=== PATIENT | female | born 1975 | race Caucasian/White ===

== ENCOUNTER 2016-08-10 13:00 | Emergency (ER) | payer OTHER ==
[2016-08-10 13:22] VITALS: BP 108/66
--- NOTE | 2016-08-10 13:25 | PROVIDER DOCUMENTATION ---
HPI-EENT General - General Chief Complaint: Toothache Stated Complaint: TOOTHACHE Time Seen by Provider: 08/10/16 13:03 Source: patient Allergies/Adverse Reactions: Patient Allergies Allergy/AdvReac Type Severity Reaction Status Date / Time adhesive tape Allergy Unknown Verified 08/10/16 13:22 Sulfa (Sulfonamide AdvReac Intermediate VOMITING Verified 08/10/16 13:22 Antibiotics) sumatriptan [From Imitrex] AdvReac Intermediate VOMITING Verified 08/10/16 13:22 sumatriptan succinate * AdvReac Intermediate VOMITING Verified 08/10/16 13:22 [From Imitrex] Home Medications: Buspirone [Buspar] 15 mg PO TID 05/28/15 Citalopram Hydrobromide [Celexa] 10 mg PO DAILY 05/28/15 Eletriptan HBr [Relpax] 20 mg PO DIRECTED PRN PRN 05/28/15 Esomeprazole Magnesium [Nexium] 40 mg PO DAILY 05/28/15 Ferrous Sulfate [Iron] 10 gm PO DAILY 05/28/15 Hydroxyzine Pamoate [Vistaril] 25 mg PO TID 05/28/15 Lurasidone HCl [Latuda] 20 mg PO BID 05/28/15 Norgestimate-Ethinyl Estradiol [Tri-Sprintec] 1 tab PO DAILY 05/28/15 Tizanidine HCl [Zanaflex] 2 mg PO DIRECTED PRN PRN 05/28/15 Topiramate [Topamax] 25 mg PO HS 05/28/15 - History of Present Illness-EENT General Nature of Presenting Problem: REPORTS TO ER WITH CC OF LEFT LOWER WISDOM TOOTH IMPACTION AND PAIN X 2WEEKS RADIATING TO LEFT EAR SHARP IN NATURE. DENIES N,V,F. HASN'T BEEN TO DENTIST. EENT Location: reports: dental Quality of Pain: reports: aching, sharp Severity: reports: severe Onset/Duration: reports: other (2 WEEKS) Timing: reports: getting worse Prearrival Treatment: Initiated prescription meds (OXYCODONE AND MUSCLE RELAXER) Locality of Occurance: Home Similar Symptoms Previously?: No Recently seen or treated by another doctor?: No Review of Systems - Adult - REVIEW OF SYSTEMS - ADULT Constitutional: denies: chills, fever, fatique Eyes: reports: no symptoms reported Ears, Nose, Mouth & Throat: reports: ear pain, mouth/dental pain. denies: sinus problem, throat pain Cardiovascular: denies: chest pain, irregular heart rate, orthopnea Respiratory: denies: cough, shortness of breath, wheezing Gastrointestinal: reports: no symptoms reported Genitourinary: reports: no symptoms reported Musculoskeletal: reports: no symptoms reported Integumentary: reports: no symptoms reported Neurological: reports: no symptoms reported Psychiatric: reports: no symptoms reported Endocrine: reports: no symptoms reported Hematologic/Lymphatic: reports: no symptoms reported Allergic/Immunologic: reports: no symptoms reported All Other Systems: Reviewed and Negative Past History - Adult - PAST MEDICAL HISTORY-ADULT Review of Records: reports: Nursing Assessment Review Major Childhood Illnesses: reports: denies history Cardiovascular: reports: denies history Respiratory: reports: denies history Gastrointestinal: reports: GERD, IBS Obstetrical/Gynecological: reports: denies history Genitourinary: reports: denies history Musculoskeletal: reports: denies history Neurological: reports: denies history Psychiatric: reports: anxiety, depression Endocrine/Immune: reports: denies history Other Conditions: reports: denies history - PRIOR SURGERIES/PROCEDURES Surgical/Procedure History: reports: reviewed, not pertinent - PRIOR HOSPITALIZATIONS Prior Hospitalizations: reports: for other non-related - IMMUNIZATION STATUS Childhood Immunizations: See Nurse Assessment Flu Vaccine: See Nurse Assessment - FAMILY HISTORY Family History: reviewed, not pertinent - SOCIAL HISTORY Smoking: denies Substance Use: none/never Physical Exam- EENT - Physical Exam EENT Initial Vital Signs Reviewed: Yes General Appearance: appears well, alert, mild distress Eye Exam: bilateral eye: normal inspection, PERRL, EOMI Ear Exam: bilateral ear: auricle normal, canal normal, TM normal Nasal Exam: normal inspection Throat Exam: pharynx normal, dental tenderness (LEFT LOWER WISDOM TOOTH DECAYED) Mouth,Throat: 1 - DECAYED AND IMPACTED Respiratory: chest non-tender, lungs clear, normal breath sounds, no pleuratic chest pain, no respiratory distress, no accessory muscle use Cardiovascular: normal peripheral pulses, regular rate, rhythm, no edema, no gallop, no JVD, no murmur Abdominal Exam: normal bowel sounds, non tender, soft, no organomegaly, no pulsatile mass Lymphatic: no adenopathy Back Exam: normal inspection, no CVA tenderness, no vertebral tenderness Extremity: normal range of motion, non-tender, normal gait, normal inspection, no pedal edema, no calf tenderness, normal capillary refill, pelvis stable Integumentary: normal color, normal turgor, warm/dry 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, no motor/sensory deficits Psych/Mental Status: AL, normal mood/affect, normal thought content, normal thought process, oriented x 3 Progress - PLAN OF CARE/RESULTS Progress/Plan/Lab Results: Vital Signs - 24 hr 08/10/16 13:18 Temperature 99.3 F Pulse Rate 66 Respiratory 18 Rate Blood Pressure 108/66 O2 Sat by Pulse 100 Oximetry Departure - Departure Time of Disposition Order: 13:24 DIAGNOSIS: Dental decay, Pain, dental Disposition: HOME Certified Medical Emergency: Emergent Condition: Stable Additional Instructions: FOLLOW UP WITH DENTIST ED Follow Up Instructions: You have been treated by a care provider in the Emergency Department. These instructions are being provided to you so you can have an understanding of how to care for yourself upon discharge. Upon discharge from the Emergency Department, you are responsible for making arrangements for follow-up care by a physician of your choice. Take all prescribed medications as directed. Return to the Emergency Department immediately for any new or worsening symptoms. You may call the Physician Referral phone number at [phone] to obtain a list of Physicians who are taking new patients. Prescriptions: Clindamycin [Cleocin] 300 mg PO TID #30 capsule Referrals: Yeimi Ordoñez MD [Primary Care Provider] - [facility] [NON-STAFF] - Jesse Gold DMD [DENTISTRY] - Attestation - Scribe Verification/Attestation Scribe:: Marisol Kaur Acting as Scribe for:: Rylee Fuentes Scribe documention review:: This chart was documented by a scribe and accurately reflects the service the provider performed and the decisions made by the provider.
== END 2016-08-10 13:31 | disposition home or self-care (01) ==
LOC: P.ED 13:00
DX: K02.9 Dental caries, unspecified (principal); K08.89 Other specified disorders of teeth and supporting structures; H92.02 Otalgia, left ear; K01.1 Impacted teeth; K21.9 Gastro-esophageal reflux disease without esophagitis; F41.9 Anxiety disorder, unspecified; F32.9 Major depressive disorder, single episode, unspecified; Z79.899 Other long term (current) drug therapy
CPT/HCPCS: 99282

== ENCOUNTER 2019-09-20 15:06 | Inpatient (IN) ==
[2019-09-20] MEDS ORDERED: FLAGYL 500 MG/NS 500 MG/100 ML IVPB IV ONE (15:30)
[2019-09-20] MEDS ORDERED: ZOFRAN IV PRN ×2 (15:30→23:00)
[2019-09-20] MEDS ORDERED: NS 1,000 ML IV ONE ×2 (15:30→23:00)
[2019-09-20] MEDS ORDERED: SODIUM CHLORIDE IV ONE (16:22)
[2019-09-20 16:23] LABS: URINE SOURCE CATH
[2019-09-20 16:25] LABS: BILIRUBIN URINE NEGATIVE (NEGATIVE); BLOOD URINE NEGATIVE (NEGATIVE); COLOR YELLOW; GLUCOSE URINE NEGATIVE (NEGATIVE); KETONE URINE NEGATIVE (NEGATIVE); LEUKOCYTES URINE LARGE (NEGATIVE); NITRITE URINE NEGATIVE (NEGATIVE); PROTEIN URINE TRACE mg/dL (NEGATIVE); SP GRAVITY URINE 1.015; TURBIDITY URINE CLEAR (CLEAR); UR EPITHELIAL CELLS <10 /HPF (<10); URINE BACTERIA NEGATIVE /HPF; URINE RBC <10 /HPF (<10); URINE WBC 20-40 /HPF (<10); UROBILINOGEN URINE NORMAL (NORMAL)
[2019-09-20 16:59] LABS: AGAP 15; ALKALINE PHOSPHATASE 257 U/L (32-104); BUN 7 mg/dL (8-22); CALCIUM 8.7 mg/dL (8.8-10.2); CHLORIDE 106 mmol/L (98-107); COSMO 282; CREATININE 0.7 mg/dL (0.5-0.9); ESTIMATED GFR > 60; GLUCOSE 106 mg/dL (70-104); GOT 104 U/L (10-30); GPT 92 U/L (10-36); POTASSIUM 3.9 mmol/L (3.5-5.1); SODIUM 142 mmol/L (136-145); TCO2 21 mmol/L (25-35); TOTAL PROTEIN 7.2 g/dL (6.3-8.3)
[2019-09-20 17:00] LABS: UR AMPHETAMINES QUAL NONE DETECTED (NONE DETECT); UR BARBITUATES QUAL NONE DETECTED (NONE DETECT); UR BENZODIAZEPIN QUAL PRESUMPTIVE POSITIVE (NONE DETECT); UR COCAINE QUAL NONE DETECTED (NONE DETECT); UR METHADONE QUAL NONE DETECTED (NONE DETECT)
[2019-09-20 17:01] LABS: UR CANNABINOIDS QUAL NONE DETECTED (NONE DETECT); UR METHAMPHETAMINE QUAL NONE DETECTED (NONE DETECT); UR OPIATES QUAL PRESUMPTIVE POSITIVE (NONE DETECT); UR OXYCODONE QUAL NONE DETECTED (NONE DETECT); UR PCP QUAL NONE DETECTED (NONE DETECT); UR PROPOXYPHENE QUAL NONE DETECTED (NONE DETECT); UR TCA QUAL PRESUMPTIVE POSITIVE (NONE DETECT)
[2019-09-20 17:26] LABS: BASO% 0.9 % (0.0-0.8); EOS# 0.14 X1000 (0.0-0.7); EOS% 1.3 % (0.0-10.0); HEMATOCRIT 37.9 % (37.0-47.0); HEMOGLOBIN 10.8 g/dL (12.0-16.0); IMM GRAN# 0.06 X1000 (0.0-0.04); IMM GRAN% 0.6 % (0.0-0.5); LYMPH# 2.22 X1000 (1.2-3.4); LYMPH% 20.4 % (20.5-51.1); MCH 23.7 PG (27-31); MCHC 28.5 g/dL (33-37); MCV 83.1 FL (81-99); MONO# 0.76 X1000 (0.11-0.59); NEUT# 7.59 X1000 (1.4-6.5); NEUT% 69.8 % (42.2-75.2); PLT 431 X1000 (130-400); RBC 4.56 XMIL (4.2-5.4); RDW 19.7 % (11.5-14.5); WBC 10.87 X1000 (4.8-10.8)
[2019-09-20 17:33] LABS: INFLUENZA A NEGATIVE (NEGATIVE); INFLUENZA B NEGATIVE (NEGATIVE)
[2019-09-20 17:44] LABS: BE -4.3 mmoll (-3.0-3.0); BLOOD TYPE ARTERIAL; HCO3-(ACT) 21.5 mmoll (20.0-26.0); O2(CT) 13.9 mL/dL (15.0-23.0); O2HB 92.8 % (95.0-99.0); PCO2(98.6) 42 mmHg (35-45); PO2(98.6) 75 mmHg (60-100); SAMPLE BLOOD; SAO2 95.1 % (95.0-100.0); THB 10.6 g/dL (11.5-17.4); pH(98.6) 7.32 (7.35-7.45)
[2019-09-20 17:46] LABS: ALLEN TEST YES; MODALITY ROOM AIR
--- NOTE | 2019-09-20 18:01 | EKG Report ---
Test Performed on : 09/20/2019 5:15:38 PM Test Reason : ams Blood Pressure : / mmHG Vent. Rate : 072 BPM Atrial Rate : 072 BPM P-R Int : 172 ms QRS Dur : 112 ms QT Int : 330 ms P-R-T Axes : 052 000 038 degrees QTc Int : 361 ms Normal sinus rhythm. Incomplete right bundle branch block Nonspecific T wave abnormality Abnormal ECG When compared with ECG of 24-JAN-2019 10:00, Incomplete right bundle branch block is now present ST no longer depressed in Inferior leads ST no longer elevated in Lateral leads Nonspecific T wave abnormality now evident in Anterolateral leads QT has shortened Unconfirmed Result
--- NOTE | 2019-09-20 18:45 | PROVIDER DOCUMENTATION ---
This chart was entered by Yancy Fowler Scribe, acting as scribe for hCilango Chris MD. HPI-Abdominal Pain/GI Problem - General Source: patient, other (neighbor) - History of Present Illness-ABD Nature of Presenting Problems: Pt is a 43 yowf with c/o of severe diarrhea for the last 3 days. Pt states that she had a dx of bronchitis 2 weeks ago and finished 1 round of antibiotics and her PCP started her on erythromycin. Pt is slow to respond to questions, does answer appropriately, appears lethargic and pale in appearance. Abdominal Pain Onset Location: reports: generalized abdomen Pain Radiation: reports: no radiation Quality of Pain: reports: aching, cramping Severity in ED: reports: mild Onset/Duration: reports: abrupt, 3 days ago Timing: reports: still present, constant Activities at Onset: reports: light activity Exposure to sick contacts?: Yes Modifying Factors: worse with: movement Associated Symptoms: reports: diarrhea, loss of appetite, muscle aches, weakness . denies: cough, vomiting Last BM: this afternoon Dark Stools Present?: reports: none noticed Rectal Bleeding: reports: none # of Diarrhea Episodes: 8 Rectal Pain: reports: none Bruising or Bleeding Gums?: No Similar Symptoms Previously?: No Recently seen or treated by another doctor?: Yes (PCP for bronchitis) <Chilango Chris - Last Filed: 09/20/19 18:44> <Doron Solomon - Last Filed: 09/20/19 22:16> - General Chief Complaint: Diarrhea Stated Complaint: DIARRHEA Time Seen by Provider: 09/20/19 15:22 Allergies/Adverse Reactions: Patient Allergies Allergy/AdvReac Type Severity Reaction Status Date / Time adhesive tape Allergy RASH Verified 09/20/19 20:06 Sulfa (Sulfonamide AdvReac Intermediate VOMITING Verified 09/20/19 20:06 Antibiotics) sumatriptan [From Imitrex] AdvReac Intermediate VOMITING Verified 09/20/19 20:06 sumatriptan succinate * AdvReac Intermediate VOMITING Verified 09/20/19 20:06 [From Imitrex] tramadol AdvReac VOMITING Verified 09/20/19 20:06 Home Medications: Home Medication List Medication Instructions Recorded Confirmed Last Taken Type Albuterol Sulfate Inhaler 2 inh IH Q4H PRN #1 inhaler 11/11/17 09/20/19 Unknown Rx [Ventolin Hfa] Bupropion S.r. [Wellbutrin Sr] 150 mg PO QAM 03/14/19 09/20/19 Unknown History Citalopram Hydrobromide [Celexa] 20 mg PO BID 03/14/19 09/20/19 Unknown History Doxepin [Sinequan] 10 mg PO HS 03/14/19 09/20/19 Unknown History Eletriptan [Relpax] 40 mg PO PRN PRN 03/14/19 09/20/19 Unknown History Ergocalciferol (Vitamin D2) 1 cap PO DIRECTED 03/14/19 09/20/19 Unknown History [Vitamin D2] Furosemide [Lasix] 20 mg PO BID 03/14/19 09/20/19 Unknown History Gabapentin 300 mg PO TID 03/14/19 09/20/19 Unknown History Lurasidone HCl [Latuda] 80 mg PO DAILY 03/14/19 09/20/19 Unknown History Montelukast Sodium [Singulair] 10 mg PO DAILY 03/14/19 09/20/19 Unknown History Omeprazole [Prilosec] 40 mg PO DAILY 03/14/19 09/20/19 Unknown History Sulindac 150 mg PO BID 03/14/19 09/20/19 Unknown History Topiramate [Topamax] 200 mg PO BID 03/14/19 09/20/19 Unknown History Zolpidem [Ambien] 10 mg PO HS 03/14/19 09/20/19 Unknown History Erenumab-Aooe [Aimovig 1 applic SQ DIRECTED 09/20/19 09/20/19 Unknown History Autoinjector] Temazepam 1 cap PO HS 09/20/19 09/20/19 Unknown History Review of Systems - Adult - REVIEW OF SYSTEMS - ADULT Constitutional: denies: chills, fever Eyes: reports: no symptoms reported Ears, Nose, Mouth & Throat: reports: no symptoms reported Cardiovascular: denies: chest pain, syncope Respiratory: denies: cough, shortness of breath Gastrointestinal: reports: abdominal pain, diarrhea Genitourinary: reports: no symptoms reported Musculoskeletal: reports: muscle aches, muscle weakness Integumentary: reports: no symptoms reported Neurological: denies: headache/migraines, syncope Psychiatric: reports: no symptoms reported Endocrine: reports: no symptoms reported Hematologic/Lymphatic: reports: no symptoms reported Allergic/Immunologic: reports: no symptoms reported All Other Systems: Reviewed and Negative <Chilango Chris - Last Filed: 09/20/19 18:44> Past History - Adult - PAST MEDICAL HISTORY-ADULT Review of Records: reports: Old Records Reviewed, Nursing Assessment Review, Medications Reviewed, Social history reviewed & non-contributory. Major Childhood Illnesses: reports: denies history Cardiovascular: reports: murmur Respiratory: reports: sleep apnea Gastrointestinal: reports: GERD, IBS Obstetrical/Gynecological: reports: uterine/ovarian cancer Genitourinary: reports: denies history Musculoskeletal: reports: chronic pain, intervertebral disc disease Neurological: reports: cancer/tumor, headaches/migraines Psychiatric: reports: anxiety, bipolar, depression, psychiatric problems, ptsd Endocrine/Immune: reports: Diabetes Other Conditions: reports: denies history - PRIOR SURGERIES/PROCEDURES Surgical/Procedure History: reports: cholecystectomy, hysterectomy, tonsillectomy, gastric bypass (March 2017), other (L great toenail removed) - PRIOR HOSPITALIZATIONS Prior Hospitalizations: reports: for other non-related - IMMUNIZATION STATUS Childhood Immunizations: See Nurse Assessment Flu Vaccine: See Nurse Assessment - FAMILY HISTORY Family History: kidney stones - SOCIAL HISTORY Smoking: non-smoker Substance Use: none/never Living Situation: alone <Chilango Chris - Last Filed: 09/20/19 18:44> Physical Exam-General - PHYSICAL EXAM-ADULT Initial Vital Signs Reviewed: Yes (O2 93 RA) - CONSTITUTIONAL General Appearance: no apparent distress, obese, lethargic, slow to respond - EYES Eyes: PERRL/EOMI, pale conjunctivae - HEAD, EARS, NOSE, MOUTH & THROAT HENMT: normocephalic/atraumatic, normal ENT inspection, TMs normal, other (dry pale lips) - NECK Neck: non-tender, full range of motion, supple, normal inspection - RESPIRATORY Respiratory: chest non-tender, lungs clear, normal breath sounds, no pleuratic chest pain, no respiratory distress, no accessory muscle use - CARDIOVASCULAR Cardiovascular: normal peripheral pulses, regular rate, rhythm, no edema, no gallop, no JVD, no murmur - GASTROINTESTINAL (ABDOMEN) Abdominal Exam: soft, no organomegaly, no pulsatile mass, tenderness (mild generalized) - LYMPHATIC Lymphatic: no adenopathy - MUSCULOSKELETAL Back Exam: normal inspection, no CVA tenderness, no vertebral tenderness Extremity: normal range of motion, non-tender, normal gait, normal inspection, no pedal edema, no calf tenderness - SKIN Integumentary: normal turgor, warm/dry, pallor - PSYCHIATRIC Psych/Mental Status: normal thought content, normal thought process, oriented x 3, depressed affect <Chilango Chris - Last Filed: 09/20/19 18:44> Progress - PLAN OF CARE/RESULTS Progress/Plan/Lab Results: Vital Signs - 8 hr 09/20/19 15:12 Temperature 98 F Pulse Rate 86 Respiratory Rate 16 Blood Pressure 131/76 O2 Sat by Pulse Oximetry 93 L Result Diagrams: 09/20/19 16:00 09/20/19 16:00 - REASSESSMENT Reassessment #1 Time Reassessed: 17:15 Status: improving Reassessment Comment: at bedside discussing POC - EKG 1 Time of EKG reading by physician:: 17:20 EKG Read and Signed by:: Chilango Chris EKG Interpretation (*Must complete 3 of following elements*): Abnormal (Incomplete right bundle branch block) Rate: 72 Rhythm: NSR Comments: Nonspecific T wave abnormality - XRAY 1 XRAY Study: Chest Impression: See EMR Report - CT/MRI 1 CT Study: Head Impression: See EMR Report 2 CT Study: Abdomen Impression: See EMR Report - CHANGE OF SHIFT REPORT (ED Provider) 1 Report Given and Care Transferred to:: Dr Painter Items Pending: Labs, CT/MRI Results, Other (coordinate care/social with family memeber) <Chilango Chris - Last Filed: 09/20/19 18:44> - PLAN OF CARE/RESULTS Progress/Plan/Lab Results: Vital Signs - 8 hr 09/20/19 15:12 09/20/19 16:55 09/20/19 17:48 Temperature 98 F Pulse Rate 86 74 75 Respiratory Rate 16 21 12 Blood Pressure 131/76 107/57 110/75 O2 Sat by Pulse Oximetry 93 L 97 100 09/20/19 19:43 Temperature Pulse Rate 76 Respiratory Rate 16 Blood Pressure 92/62 O2 Sat by Pulse Oximetry 98 Bedside Urine ED: Urine Bedside Start: 09/20/19 16:38 Freq: Status: Active Protocol: Activity Type Activity Date Activity User E-Sign Co-Sign Detail Recorded Client Recorded Date Recorded By Document 09/20/19 16:38 [id number] 09/20/19 16:38 [id number] 09/20/19 16:38 Point of Care [Bedside Point of Care] -Lot # [id number] - Results Negative -Control Line Visible? Yes Laboratory Results - last 24 hr 09/20/19 09/20/19 09/20/19 15:57 16:00 16:00 WBC 10.87 H RBC 4.56 Hgb 10.8 L Hct 37.9 MCV 83.1 MCH 23.7 L MCHC 28.5 L RDW Std Deviation 19.7 H Plt Count 431 H MPV 10.0 Immature Gran % (Auto) 0.6 H Neut % (Auto) 69.8 Lymph % (Auto) 20.4 L [place] % (Auto) 7.0 Eos % (Auto) 1.3 Baso % (Auto) 0.9 H Immature Gran # (Auto) 0.06 H Neut # (Auto) 7.59 H Lymph # (Auto) 2.22 [place] # (Auto) 0.76 H Eos # (Auto) 0.14 Baso # (Auto) 0.10 Specimen Type Sample Site pH pCO2 pO2 HCO3 Base Excess Oxyhemoglobin ABG O2 Sat (Calculated) ABG O2 Saturation ABG Carboxyhemoglobin ABG Methemoglobin Sandro Test A-a O2 Difference Total Hemoglobin Lactate Blood Gas Modality FiO2 % Sodium 142 Potassium 3.9 Chloride 106 Carbon Dioxide 21 L Anion Gap 15 BUN 7 L Creatinine 0.7 Estimated GFR/1.73 m2 > 60 BUN/Creatinine Ratio 10 Glucose 106 H POC Glucose Calculated Osmolality 282 Calcium 8.7 L Total Bilirubin 0.30 AST 104 H ALT 92 H Alkaline Phosphatase 257 H Ammonia Troponin T High Sens Total Protein 7.2 Albumin 4.0 Globulin 3.0 Albumin/Globulin Ratio 1.0 Plasma Lactate Urine Source Urine Color Urine Turbidity Urine pH Ur Specific [place] Urine Protein Ur Glucose (Stick) Ur Ketones (Stick) Urine Blood Urine Nitrite Urine Bilirubin Urobilinogen Dipstick Urine Leukocytes Urine WBC (Auto) Urine RBC (Auto) U Epithel Cells (Auto) Urine Bacteria (Auto) Urine Opiates Screen PRESUMPTIVE POSITIVE A Ur Oxycodone Screen NONE DETECTED Urine Methadone Screen NONE DETECTED U Propoxyphene Qual NONE DETECTED Ur Barbituates Screen NONE DETECTED Ur Tricyclics Screen PRESUMPTIVE POSITIVE A Ur Phencyclidine Scrn NONE DETECTED Ur Amphetamines Screen NONE DETECTED U Methamphetamines Scrn NONE DETECTED U Benzodiazepines Scrn PRESUMPTIVE POSITIVE A Urine Cocaine Screen NONE DETECTED U Cannabinoids Screen NONE DETECTED Plasma/Serum Ethyl Alc Influenza A (Rapid) Influenza B (Rapid) 09/20/19 09/20/19 09/20/19 16:00 16:00 16:00 WBC RBC Hgb Hct MCV MCH MCHC RDW Std Deviation Plt Count MPV Immature Gran % (Auto) Neut % (Auto) Lymph % (Auto) [place] % (Auto) Eos % (Auto) Baso % (Auto) Immature Gran # (Auto) Neut # (Auto) Lymph # (Auto) [place] # (Auto) Eos # (Auto) Baso # (Auto) Specimen Type Sample Site pH pCO2 pO2 HCO3 Base Excess Oxyhemoglobin ABG O2 Sat (Calculated) ABG O2 Saturation ABG Carboxyhemoglobin ABG Methemoglobin Sandro Test A-a O2 Difference Total Hemoglobin Lactate Blood Gas Modality FiO2 % Sodium Potassium Chloride Carbon Dioxide Anion Gap BUN Creatinine Estimated GFR/1.73 m2 BUN/Creatinine Ratio Glucose POC Glucose Calculated Osmolality Calcium Total Bilirubin AST ALT Alkaline Phosphatase Ammonia Troponin T High Sens Total Protein Albumin Globulin Albumin/Globulin Ratio Plasma Lactate 1.0 Urine Source CATH Urine Color YELLOW Urine Turbidity CLEAR Urine pH 6.0 Ur Specific [place] 1.015 Urine Protein TRACE A Ur Glucose (Stick) NEGATIVE Ur Ketones (Stick) NEGATIVE Urine Blood NEGATIVE Urine Nitrite NEGATIVE Urine Bilirubin NEGATIVE Urobilinogen Dipstick NORMAL Urine Leukocytes LARGE A Urine WBC (Auto) 20-40 A Urine RBC (Auto) <10 U Epithel Cells (Auto) <10 Urine Bacteria (Auto) NEGATIVE Urine Opiates Screen Ur Oxycodone Screen Urine Methadone Screen U Propoxyphene Qual Ur Barbituates Screen Ur Tricyclics Screen Ur Phencyclidine Scrn Ur Amphetamines Screen U Methamphetamines Scrn U Benzodiazepines Scrn Urine Cocaine Screen U Cannabinoids Screen Plasma/Serum Ethyl Alc Influenza A (Rapid) Influenza B (Rapid) 09/20/19 09/20/19 09/20/19 16:04 17:07 17:28 WBC RBC Hgb Hct MCV MCH MCHC RDW Std Deviation Plt Count MPV Immature Gran % (Auto) Neut % (Auto) Lymph % (Auto) [place] % (Auto) Eos % (Auto) Baso % (Auto) Immature Gran # (Auto) Neut # (Auto) Lymph # (Auto) [place] # (Auto) Eos # (Auto) Baso # (Auto) Specimen Type Sample Site pH pCO2 pO2 HCO3 Base Excess Oxyhemoglobin ABG O2 Sat (Calculated) ABG O2 Saturation ABG Carboxyhemoglobin ABG Methemoglobin Sandro Test A-a O2 Difference Total Hemoglobin Lactate Blood Gas Modality FiO2 % Sodium Potassium Chloride Carbon Dioxide Anion Gap BUN Creatinine Estimated GFR/1.73 m2 BUN/Creatinine Ratio Glucose POC Glucose 92 Calculated Osmolality Calcium Total Bilirubin AST ALT Alkaline Phosphatase Ammonia 12 Troponin T High Sens Total Protein Albumin Globulin Albumin/Globulin Ratio Plasma Lactate Urine Source Urine Color Urine Turbidity Urine pH Ur Specific [place] Urine Protein Ur Glucose (Stick) Ur Ketones (Stick) Urine Blood Urine Nitrite Urine Bilirubin Urobilinogen Dipstick Urine Leukocytes Urine WBC (Auto) Urine RBC (Auto) U Epithel Cells (Auto) Urine Bacteria (Auto) Urine Opiates Screen Ur Oxycodone Screen Urine Methadone Screen U Propoxyphene Qual Ur Barbituates Screen Ur Tricyclics Screen Ur Phencyclidine Scrn Ur Amphetamines Screen U Methamphetamines Scrn U Benzodiazepines Scrn Urine Cocaine Screen U Cannabinoids Screen Plasma/Serum Ethyl Alc Influenza A (Rapid) NEGATIVE Influenza B (Rapid) NEGATIVE 09/20/19 09/20/19 17:28 17:31 WBC RBC Hgb Hct MCV MCH MCHC RDW Std Deviation Plt Count MPV Immature Gran % (Auto) Neut % (Auto) Lymph % (Auto) [place] % (Auto) Eos % (Auto) Baso % (Auto) Immature Gran # (Auto) Neut # (Auto) Lymph # (Auto) [place] # (Auto) Eos # (Auto) Baso # (Auto) Specimen Type ARTERIAL Sample Site L RADIAL pH 7.32 L pCO2 42 pO2 75 HCO3 21.5 Base Excess -4.3 L Oxyhemoglobin 92.8 L ABG O2 Sat (Calculated) 13.9 L ABG O2 Saturation 95.1 ABG Carboxyhemoglobin 1.50 ABG Methemoglobin 1.0 Sandro Test YES A-a O2 Difference 22.0 Total Hemoglobin 10.6 L Lactate 0.40 L Blood Gas Modality ROOM AIR FiO2 % 21.0 Sodium Potassium Chloride Carbon Dioxide Anion Gap BUN Creatinine Estimated GFR/1.73 m2 BUN/Creatinine Ratio Glucose POC Glucose Calculated Osmolality Calcium Total Bilirubin AST ALT Alkaline Phosphatase Ammonia Troponin T High Sens < 6 Total Protein Albumin Globulin Albumin/Globulin Ratio Plasma Lactate Urine Source Urine Color Urine Turbidity Urine pH Ur Specific [place] Urine Protein Ur Glucose (Stick) Ur Ketones (Stick) Urine Blood Urine Nitrite Urine Bilirubin Urobilinogen Dipstick Urine Leukocytes Urine WBC (Auto) Urine RBC (Auto) U Epithel Cells (Auto) Urine Bacteria (Auto) Urine Opiates Screen Ur Oxycodone Screen Urine Methadone Screen U Propoxyphene Qual Ur Barbituates Screen Ur Tricyclics Screen Ur Phencyclidine Scrn Ur Amphetamines Screen U Methamphetamines Scrn U Benzodiazepines Scrn Urine Cocaine Screen U Cannabinoids Screen Plasma/Serum Ethyl Alc Influenza A (Rapid) Influenza B (Rapid) Orders Category Date Time Status CHEST-PORTABLE [RAD] Stat Exams 09/20/19 16:[address] ABD/PELVIS W/IV CONT ONLY [CT] Stat Exams 09/20/19 16:[address] HEAD W/O CONTRAST [CT] Stat Exams 09/20/19 16:19 Completed ABG [RESP] Routine Lab 09/20/19 17:31 Completed ALCOHOL BLOOD Stat Lab 09/20/19 16:00 Completed AMMONIA [CHEM] Stat Lab 09/20/19 17:28 Completed BLOOD CULTURE [BLDCUL] Stat Lab 09/20/19 16:00 Results C DIFF TOXIN PL Stat Lab 09/20/19 15:30 Uncollected CBC WITH ELECTRONIC DIFF [HEME] Stat Lab 09/20/19 16:00 Completed COMPREHENSIVE METABOLIC PANEL [CHEM] Stat Lab 09/20/19 16:[address] Stat Lab 09/20/19 17:07 Completed LACTATE, PLASMA [CHEM] Stat Lab 09/20/19 16:00 Completed TROPONIN T HIGH SENSITIVITY Stat Lab 09/20/19 17:28 Completed UA NIMS W/REFLEX CULT [URINALYSIS] Stat Lab 09/20/19 16:00 Completed URINE CULTURE [RM] Routine Lab 09/20/19 21:03 Ordered [address]INE DRUG SCREEN [address] Stat Lab 09/20/19 15:57 Completed 0.9% Sodium Chloride Inj [Ns] 1,000 ml Med 09/20/19 15:30 Discontinued IV 999 mls/hr 0.9% Sodium Chloride Inj [Ns] 4,721.91 ml Med 02/15/20 16:22 Discontinued IV 999 mls/hr Metronidazole 500 mg/Ns [Flagyl 500 mg/Ns] Med 09/20/19 15:30 Discontinued 500 mg in 100 ml IV NOW Ondansetron [Zofran] Med 09/20/19 15:30 Active 4 mg IV Q4H PRN PRN EKG [EKG] Stat Ther 09/20/19 16:57 Draft Result Diagrams: 09/20/19 16:00 09/20/19 16:00 - CONSULTS/PCP/HOSPITALIST Notification #1 *Consult/PCP/Hospitalist*: Dr Knox Time Discussed: 22:00 Consult Disposition: Admit <Doron Solomon - Last Filed: 09/20/19 22:16> Departure <Chilango Chris - Last Filed: 09/20/19 18:44> - Departure Date of Disposition Decision: 09/20/19 Time of Disposition Decision: 22:14 Certified Medical Emergency: Emergent - Critical Care Note This patient required my direct & personal management of CC.: No <Doron Solomon - Last Filed: 09/20/19 22:16> - Departure DIAGNOSIS: Dehydration, AMS (altered mental status), UTI (urinary tract infection), Elevated LFTs Disposition: ADMITTED INPATIENT 09 Condition: Fair Referrals and Follow-Ups: Franny Cardenas MD [Primary Care Provider] - Attestation - Physician/ NETO Attestation Patient care was provided by Advanced Practice Provider:: No The physician spent face to face time with patient:: Yes Advanced Practice Provider documentation review:: Supervising physician onsite and consulted in the evaluation and care of this patient. The physician did have a face to face encounter with the patient. <Chilango Chris - Last Filed: 09/20/19 18:44> This chart was documented by the indicated scribe, (Yancy Fowler Scribe) and accurately reflects the services I performed and decisions made by [employer] Bahador Mark, MD, as attested by the provider's signature.
--- NOTE | 2019-09-20 18:51 | Diag Imaging Result Doc PS360 ---
EXAM: CT HEAD W/O CONTRAST HISTORY: ams TECHNIQUE: CT head without contrast COMPARISON: 01/22/2020 FINDINGS: No parenchymal hemorrhage. No epidural or subdural hematoma. No subarachnoid hemorrhage. No mass identified on this noncontrasted exam. No hydrocephalus. No sinus opacification. IMPRESSION: No hemorrhage. Negative brain CT without contrast. This exam was performed using automated exposure control, adjustment of mA or kV according to patient size, and/or use of iterative reconstruction technique. Electronically signed by Dane Villafana 09/20/2019 6:49 PM
--- NOTE | 2019-09-20 18:58 | Diag Imaging Result Doc PS360 ---
EXAM: CT ABD/PELVIS W/IV CONT ONLY HISTORY: abd pain , diarhea TECHNIQUE: CT abdomen and pelvis with intravenous contrast, but without oral contrast. COMPARISON: 01/24/2019 FINDINGS: The gallbladder has been removed. There has been a gastric bypass procedure. There is mild fatty infiltration of the liver. No splenomegaly. No inflammation about the pancreas. Normal adrenal glands. There is a nonobstructing right lower pole renal stone. No hydronephrosis. Normal aorta. No bowel obstruction. No inflammation about the cecum. No abscess. No ascites. The uterus is been removed. No pelvic mass. Urinary bladder is moderately distended and normal. IMPRESSION: No change This exam was performed using automated exposure control, adjustment of mA or kV according to patient size, and/or use of iterative reconstruction technique. Electronically signed by Dane Villafana 09/20/2019 6:56 PM
--- NOTE | 2019-09-20 18:59 | Diag Imaging Result Doc PS360 ---
EXAM: CHEST-PORTABLE HISTORY: ams TECHNIQUE: Single view COMPARISON: 02/15/2019 FINDINGS: The lungs are well expanded. The heart is not enlarged. The vessels are not distended. There are no infiltrates. No effusion identified. IMPRESSION: Negative exam. Electronically signed by Dane Villafana 09/20/2019 6:57 PM
[2019-09-20] MEDS ORDERED: ROCEPHIN 1 GM in NS 50 ML IV ONE (22:17)
[2019-09-20] MEDS ORDERED: TYLENOL PO PRN (23:00)
[2019-09-21 05:50] LABS: BASO# 0.11 X1000 (0.0-0.2); BASO% 1.5 % (0.0-0.8); EOS# 0.17 X1000 (0.0-0.7); EOS% 2.3 % (0.0-10.0); HEMATOCRIT 31.6 % (37.0-47.0); HEMOGLOBIN 8.9 g/dL (12.0-16.0); IMM GRAN# 0.03 X1000 (0.0-0.04); IMM GRAN% 0.4 % (0.0-0.5); LYMPH# 2.37 X1000 (1.2-3.4); LYMPH% 31.4 % (20.5-51.1); MCH 23.7 PG (27-31); MCHC 28.2 g/dL (33-37); MCV 84.3 FL (81-99); MONO% 7.9 % (1.7-9.3); NEUT# 4.27 X1000 (1.4-6.5); NEUT% 56.5 % (42.2-75.2); PLT 354 X1000 (130-400); RBC 3.75 XMIL (4.2-5.4); RDW 19.7 % (11.5-14.5); WBC 7.55 X1000 (4.8-10.8)
[2019-09-21 06:03] LABS: AGAP 11; ALBUMIN 3.1 g/dL (3.5-5.0); ALKALINE PHOSPHATASE 197 U/L (32-104); BUN 7 mg/dL (8-22); CALCIUM 7.8 mg/dL (8.8-10.2); CHLORIDE 114 mmol/L (98-107); COSMO 285; CREATININE 0.5 mg/dL (0.5-0.9); ESTIMATED GFR > 60; GLUCOSE 105 mg/dL (70-104); GOT 48 U/L (10-30); GPT 58 U/L (10-36); POTASSIUM 3.5 mmol/L (3.5-5.1); SODIUM 144 mmol/L (136-145); TCO2 20 mmol/L (25-35)
[2019-09-21 07:27] VITALS: BP 91/46
[2019-09-21] MEDS ORDERED: PATIENT'S OWN MED PO PRN (08:18)
[2019-09-21] MEDS ORDERED: VENTOLIN HFA INH PRN (08:18)
[2019-09-21] MEDS ORDERED: CLEOCIN PO SCH (09:00)
[2019-09-21] MEDS ORDERED: LASIX PO SCH (09:00)
[2019-09-21] MEDS ORDERED: SINGULAIR PO SCH (09:00)
[2019-09-21] MEDS ORDERED: LATUDA PO SCH (09:00)
[2019-09-21] MEDS ORDERED: WELLBUTRIN SR PO SCH (09:00)
[2019-09-21] MEDS ORDERED: PRILOSEC PO SCH (09:00)
[2019-09-21] MEDS ORDERED: TOPAMAX PO SCH (09:00)
[2019-09-21] MEDS ORDERED: CELEXA PO SCH (09:00)
[2019-09-21] MEDS: NEURONTIN PO SCH ×2 (10:08→12:38)
--- NOTE | 2019-09-21 11:54 | HISTORY AND PHYSICAL ---
PRIMARY CARE PROVIDER: Dr. Franny Lara. CHIEF COMPLAINT: Diarrhea and fever. HISTORY OF PRESENT ILLNESS: Ms. Nimo Underwood is a 43-year-old, female with a medical history of severe morbid obesity, BMI 60.3, GERD, migraines, anxiety, depression, bipolar disorder, who most recently was being treated for acute bronchitis as an outpatient. She went to an urgent care, where she received 1 round of antibiotics, which she completed, and then she returned with the same complaints, and they started her on erythromycin. This, however, in turn started causing diarrhea, which she had around 3 days worth of diarrhea. She has since been diarrhea-free since admission. She was also found to be pretty lethargic. She is still pretty drowsy. However, she states it is because she has not had a whole lot of sleep. She does complain of some excessive urination, but no foul-smelling urine or urgency. She claims to still have some wheezing, a subjective fever of 101.3, and yellow productive phlegm. Upon assessment, she actually sounded clear. There was no work of breathing noted. She has been diarrhea-free since yesterday. PAST MEDICAL HISTORY: 1. Severe morbid obesity with a BMI of 60.3 despite having gastric sleeve or gastric bypass. 2. GERD. 3. Osteoporosis. 4. Migraines. 5. Heart murmur. 6. History of gestational diabetes. 7. Anxiety. 8. Depression. 9. Bipolar. 10. Benign spinal tumor. PAST SURGICAL HISTORY: 1. Hysterectomy. 2. Gastric sleeve in 2014. 3. Gastric bypass in 2017. 4. Tonsillectomy and adenoidectomy. 5. Left foot surgery for cyst removal. SOCIAL HISTORY: Denies tobacco, alcohol, or illicit drug use. FAMILY HISTORY: Mother and father both had diabetes. Sister with thyroid cancer. ALLERGIES: 1. Adhesive tape. 2. Sulfa. 3. Imitrex. 4. Erythromycin base causes diarrhea. 5. Ultram. HOME MEDICATIONS: 1. Aimovig subcutaneously for migraines. 2. Ambien 10 mg p.o. nightly. 3. Citalopram 20 mg p.o. twice daily. 4. Neurontin 300 mg p.o. t.i.d. 5. Lasix 20 mg p.o. twice daily. 6. Latuda 80 mg p.o. daily. 7. Prilosec 40 mg p.o. daily. 8. Relpax 40 mg p.o. p.r.n. 9. Doxepin 10 mg p.o. nightly. 10. Singulair 10 mg p.o. daily. 11. Sulindac 150 mg p.o. twice daily. 12. Temazepam 15 mg p.o. nightly. 13. Topamax 200 mg p.o. twice daily. 14. Vitamin D2, 50,000 units p.o. as directed. 15. Wellbutrin 150 mg p.o. daily. 16. Flagyl 500 mg p.o. t.i.d. 17. Levaquin 500 mg p.o. daily. 18. Albuterol nebulizers every 4 hours p.r.n. REVIEW OF SYSTEMS: A 14-point review of systems are complete and all are negative, except for those mentioned in the above HPI. PHYSICAL EXAMINATION: VITAL SIGNS: Temperature 97.5 degrees, heart rate 65, respiratory rate 20, blood pressure 91/46, O2 saturation 98% on room air. GENERAL: Ms. Nimo Underwood is a 43-year-old, female. She is in no acute distress. She is able to answer questions appropriately, but she is drowsy. HEENT: Atraumatic, normocephalic. Pupils equal, round, reactive to light. Extraocular movements intact. Mucous membranes are moist. NECK: Trachea midline. CARDIOVASCULAR: S1, S2. Regular rate and rhythm. No rubs, gallops, murmurs. No lower extremity edema. There are +2 dorsalis and radial pulses. Negative JVD or carotid bruits. PULMONARY: Clear to auscultation. Bilateral breath sounds. No accessory muscle use or work of breathing noted. GI: Soft, nontender, nondistended. Positive bowel sounds x4. EXTREMITIES: Decreased range of motion due to morbid obesity, but she moves all extremities equally. NEUROLOGIC: Oriented x3. Very drowsy. Follows commands. Sensory is intact. SKIN: Warm, dry, intact. LABORATORY DATA: White blood cells 7000, hemoglobin 8, hematocrit 31, platelet count 354,000. Sodium 144, potassium 3.5, BUN 7, creatinine 0.5, glucose 105, calcium 7.8. Bilirubin 0.20, AST 48, ALT 58. Ammonia 12. Albumin 3.1. Urinalysis: Large leukocytes, 20 to 40 white blood cells, but negative bacteria. Urine drug screen: Positive opiates, tricyclics, and benzodiazepines. Negative alcohol. Influenza A and B negative. IMAGING: Head CT negative for any acute findings. Abdominopelvic CT: No acute findings. Chest x-ray: Negative exam. EKG: Normal sinus rhythm, rate 72, QTc was 361. ASSESSMENT AND PLAN: 1. Diarrhea. This has since resolved. 2. Recent treatment for acute bronchitis. Antibiotics initiated. 3. Drowsy and history of anxiety, depression, and bipolar disorder. Will resume home medications. 4. gastroesophageal reflux disease. Continue proton pump inhibitor. 5. Severe morbid obesity. Body mass index 60.3. Diet and exercise was recommended. 6. Deep venous thrombosis prophylaxis. Sequential compression devices. Dictated by DESEAN Kaufman for Hossein Reich MD cc: DESEAN Kaufman MD
[2019-09-21] MEDS ORDERED: FLAGYL PO SCH (13:00)
--- NOTE | 2019-09-21 15:31 | DISCHARGE SUMMARY ---
ADMISSION DATE: 09/20/2019 DISCHARGE DATE: 09/21/2019 DISCHARGE DIAGNOSES: 1. Diarrhea, resolved. 2. Recent treatment for acute bronchitis. 3. Drowsy with history of anxiety, depression, bipolar disorder. 4. Gastroesophageal reflux disease. 5. Severe morbid obesity. CONSULTATIONS: None. SURGERIES AND PROCEDURES: None. HOSPITAL COURSE: Ms. Nimo Underwood is a 43-year-old female with a medical history of severe morbid obesity, a BMI of 60.3, GERD, migraines, anxiety, depression, bipolar disorder, recently treated for acute bronchitis with 2 rounds of antibiotics. Developed diarrhea for 3 days, which resolved after she came here. However, she was lethargic and was put in the hospital to be monitored overnight, and she is stable to be discharged. DISCHARGE VITAL SIGNS: Temperature 97.5 degrees, heart rate 65, respiratory rate 20, blood pressure 91/46, O2 saturations 98% on room air. DISCHARGE LAB DATA: White blood cells 7000, hemoglobin 8.9, hematocrit 31.6, platelet count 354,000. Sodium 144, potassium 3.5, BUN 7, creatinine 0.5, glucose 105, calcium 7.8, bilirubin 0.20, AST 48, ALT 58, albumin 3.1. Urine drug screen positive for opiates, tricyclics, and benzodiazepine. Negative for the flu. IMAGING: Head CT negative, abdominopelvic CT negative, and chest x-ray is negative. EKG: Normal sinus rhythm, rate 72. QTc was 361. DISCHARGE MEDICATIONS: 1. Flagyl 500 mg p.o. t.i.d. 2. Levaquin 500 mg p.o. daily. 3. Albuterol inhaled every 4 hours p.r.n. 4. Aimovig. 5. Ambien 10 mg p.o. nightly. 6. Citalopram 20 mg p.o. twice daily. 7. Neurontin 300 mg p.o. t.i.d. 8. Lasix 20 mg p.o. twice daily. 9. Latuda 80 mg p.o. daily. 10. Prilosec 40 mg p.o. daily. 11. Relpax 40 mg p.o. p.r.n. 12. Doxepin 10 mg p.o. nightly. 13. Singulair 10 mg p.o. daily. 14. Sulindac 150 mg p.o. twice daily. 15. Temazepam 15 mg p.o. nightly. 16. Topamax 200 mg p.o. twice daily. 17. Vitamin D2 50,000 units p.o. daily or as directed. 18. Wellbutrin 150 mg p.o. daily. PHYSICIAN FOLLOW-UPS: Franny Lara. DISCHARGE ACTIVITY: As tolerated. DISCHARGE DIET: Heart healthy. DISCHARGE INSTRUCTIONS: If your condition changes, contact physician and/or return to the emergency department. Changes may include, but are not limited to, shortness of breath, increased fatigue, excessive bleeding, unexplained weight loss or gain, unmanageable pain, signs or symptoms of infection. DISCHARGE DISPOSITION: Home. Dictated by DESEAN Kaufman for Hossein Reich MD cc: DESEAN Kaufman MD
[2019-09-21] MEDS ORDERED: AMBIEN PO SCH (21:00)
[2019-09-21] MEDS ORDERED: SINEQUAN PO SCH (21:00)
[2019-09-21] MEDS ORDERED: RESTORIL PO SCH (21:00)
--- NOTE | 2019-09-21 21:21 | DISCHARGE SUMMARY ---
ADMISSION DATE: 09/20/2019 DISCHARGE DATE: 09/21/2019 DISCHARGE DIAGNOSIS: 1. Diarrhea, appears resolved. 2. Leukocytosis, resolved. 3. Anemia of chronic disease. 4. Elevated transaminases, improving. 5. Chronic diabetes, reflux. 6. Chronic pain. 7. Migraines. 8. Bipolar depression. CONSULTATIONS: None. PROCEDURES: None. BRIEF HOSPITAL COURSE: The patient was admitted to the hospital secondary to severe diarrhea for several days. She does have a history of IBS and that was likely the cause of this. Thankfully, after admission, her symptoms improved. She was given Flagyl which certainly may have improved that. Therefore, we will discharge her home on Flagyl. Further orders as needed. No changes made on her chronic medications, diet, activity otherwise. She will follow up outpatient with treatment facility of choice. cc: Hossein Reich MD
--- NOTE | 2019-09-21 21:21 | HISTORY AND PHYSICAL ---
ADDENDUM: Patient seen and examined by myself. Full note dictated and discussed with nurse practitioner. Patient presented to the hospital with severe diarrhea. She was given 1 dose of antibiotics in the ER. Currently we are going to admit her to the hospital and will follow. cc: Hossein Reich MD
[2019-09-21] MEDS ORDERED: ROCEPHIN 1 GM in NS 50 ML IV SCH (22:00)
== END 2019-09-21 13:25 | disposition home or self-care (01) | DRG 392 ==
LOC: P.ED 15:06 → P.MEDSURG 22:31 → SUATTDRO 22:31
PROVIDERS: ATTEND Family Medicine